=== PATIENT | female | born 1995 | race Caucasian/White ===

== ENCOUNTER 2016-11-23 03:15 | Emergency (ER) | payer OTHER ==
[~2016-11-23] VITALS: Ht 157.5 cm; Wt 53.8 kg
[2016-11-23 03:18] VITALS: TEMP 36.6; Ht 157.5 cm; Wt 53.8 kg
[2016-11-23] MEDS ORDERED: DiphenhydrAMINE HCL 50 MG/ML VIAL IV STA (03:31)
[2016-11-23] MEDS ORDERED: METOCLOPRAMIDE HCL INJ 5 MG/ML 2 ML VIAL IV STA (03:31)
[2016-11-23] MEDS ORDERED: AMPH20CA3 PO (03:32)
[2016-11-23] MEDS ORDERED: BCPILLS PO (03:33)
[2016-11-23] MEDS ORDERED: DEXAMETHASONE SOD INJ 10 MG/ML VIAL IV ONE (03:45)
[2016-11-23 04:11] LABS: MEAN CELL VOLUME 86.4 fL (80-100); MEAN CORPUSCULAR HEMOGLOBIN 29.4 pg (25-34); PLATELET COUNT 235 K/uL (130-400); RED BLOOD COUNT 4.86 M/uL (4.2-5.4); WHITE BLOOD COUNT 4.62 K/uL (4.8-10.8)
[2016-11-23 04:15] LABS: CREATININE 0.82 mg/dl (0.60-1.20); POTASSIUM 3.9 mmol/L (3.5-5.1); PREG INTERNAL NEGATIVE QC NEG CLEAR BACKGROUND; PREG INTERNAL POSITIVE QC POS CONTROL LINE
[2016-11-23 04:22] LABS: BASO % 1.7 %; BASO ABS # 0.08 K/uL (0-0.2); COMPLETE YES; EOS % 1.5 %; LYMPH % 64.1 %; LYMPH ABS # 2.96 K/uL (1.2-3.4); NEUT % 19.7 %
[2016-11-23 05:05] LABS: HEMATOCRIT 38.5 % (37-47); MEAN CELL VOLUME 87.1 fL (80-100); MEAN CORPUSCULAR HEMOGLOBIN 28.1 pg (25-34); MEAN CORPUSCULAR HGB CONC 32.2 g/dl (32-36); MEAN PLATELET VOLUME 10.1 fL (7.4-10.4); PLATELET COUNT 222 K/uL (130-400); RED BLOOD COUNT 4.42 M/uL (4.2-5.4)
[2016-11-23 05:34] LABS: BASO % 1.4 %; BASO ABS # 0.06 K/uL (0-0.2); COMPLETE YES; EOS % 2.1 %; IG% 0.2 %; LYMPH % 57.7 %; LYMPH ABS # 2.48 K/uL (1.2-3.4); MONO % 12.3 %; NEUT % 26.3 %
[2016-11-23 05:52] VITALS: BP 114/69; PULSE 72; O2SAT 97
--- NOTE | 2016-11-23 06:02 | EMERGENCY ROOM VISIT NOTE ---
History First contact with patient: 03:23 Chief Complaint: HEADACHE Stated Complaint: UNCOMFORTABLE HEADACHE, TOOTHACHE History of Present Illness The patient is a 21 year old female who presents to the Emergency Room with complaints of left sided facial pain that radiates up to her temporal region for the past day described as throbbing, ranging in severity 8 out of 10. Nothing makes it better or worse. Patient tried some nasal congestion. Patient tried Motrin and Afrin with minimal improvement of symptoms. Patient is unsure the symptoms are coming from her teeth. She is a known cavity in the right side. Nothing on the left. Patient denies eye pain, fevers, neck stiffness, sore throat, chest pain, dyspnea, cough. She is tolerate by mouth fluids and food. Review of Systems See HPI for pertinent positives & negatives. A total of 10 systems reviewed and were otherwise negative. Past Medical/Surgical History Asthma Social History Smoking Status: Never Smoker Smokeless Tobacco Use: No Drug Use: none Occupation Status: [employer] student Current/Historical Medications Scheduled Amphetamine-Dextroamphetamine 20MG (Adderall Xr 20MG), 20 MG PO DAILY Control Pills ( Control Pills), 1 TAB PO DAILY Physical Exam Vital Signs Date Time Temp Pulse Resp B/P (MAP) Pulse Ox O2 Delivery O2 Flow Rate FiO2 11/23/16 05:52 72 20 114/69 97 Room Air 11/23/16 04:26 66 20 126/85 98 Room Air 11/23/16 03:18 36.6 84 18 133/94 99 Room Air Physical Exam VITALS: Vitals are noted on the nurse's note and reviewed by myself. Vital signs stable. GENERAL: Pleasant female, in no acute distress, nondiaphoretic, well-developed well-nourished. SKIN: The skin was without rashes, erythema, edema, or bruising. There is no tenting of the skin. Capillary reflex less than 2 seconds. HEAD: Normocephalic atraumatic. EARS: External auditory canals clear, tympanic membranes pearly alvarado without erythema or effusion bilaterally. EYES: Pupils equal round and reactive to light and accommodation. Conjunctivae without injection, sclerae without icterus. Extraocular movements intact. NOSE: Patent, turbinates without inflammation or discharge. Left maxillary sinus tenderness. MOUTH: Mucous membranes moist. Pharynx without erythema or exudate. Uvula midline. Airway patent. Tongue does not deviate. NECK: Supple without nuchal rigidity. No lymphadenopathy. No thyromegaly. Cervical spine is nontender. No JVD. No meningeal signs HEART: Regular rate and rhythm without murmurs gallops or rubs. LUNGS: Clear to auscultation bilaterally without wheezes, rales or rhonchi. No dullness to percussion. No retractions or accessory muscle use. ABDOMEN: Positive bowel sounds x 4. Normal tympanic percussion. Soft, nontender, without masses or organomegaly. Dowling sign negative. No guarding or rebound tenderness. MUSCULOSKELETAL: No muscle atrophy, erythema, or edema noted. NEURO: Patient was alert and oriented to person place and time. Normal sensation to light and sharp touch. No focal neurological deficits. Medical Decision & Procedures Laboratory Results 11/23/16 04:55 Red Blood Count 4.42, Mean Corpuscular Volume 87.1, Mean Corpuscular Hemoglobin 28.1, Mean Corpuscular Hemoglobin Concent 32.2, Mean Platelet Volume 10.1, Neutrophils (%) (Auto) 26.3, Lymphocytes (%) (Auto) 57.7, Monocytes (%) (Auto) 12.3, Eosinophils (%) (Auto) 2.1, Basophils (%) (Auto) 1.4, Neutrophils # (Auto ) 1.13, Lymphocytes # (Auto) 2.48, Monocytes # (Auto) 0.53, Eosinophils # (Auto ) 0.09, Basophils # (Auto) 0.06 11/23/16 03:44 Test 11/23/16 03:44 11/23/16 04:55 Anion Gap 4.0 mmol/L (3-11) Est Creatinine Clear Calc Drug Dose 85.9 ml/min Estimated GFR () 118.6 Estimated GFR (Non- 102.3 BUN/Creatinine Ratio 7.0 (10-20) Calcium Level 9.0 mg/dl (8.5-10.1) Human Chorionic Gonadotropin, Qual NEG (NEG) White Blood Count 4.30 K/uL (4.8-10.8) Red Blood Count 4.42 M/uL (4.2-5.4) Hemoglobin 12.4 g/dL (12.0-16.0) Hematocrit 38.5 % (37-47) Mean Corpuscular Volume 87.1 fL (80-100) Mean Corpuscular Hemoglobin 28.1 pg (25-34) Mean Corpuscular Hemoglobin Concent 32.2 g/dl (32-36) Platelet Count 222 K/uL (130-400) Mean Platelet Volume 10.1 fL (7.4-10.4) Neutrophils (%) (Auto) 26.3 % Lymphocytes (%) (Auto) 57.7 % Monocytes (%) (Auto) 12.3 % Eosinophils (%) (Auto) 2.1 % Basophils (%) (Auto) 1.4 % Neutrophils # (Auto) 1.13 K/uL (1.4-6.5) Lymphocytes # (Auto) 2.48 K/uL (1.2-3.4) Monocytes # (Auto) 0.53 K/uL (0.11-0.59) Eosinophils # (Auto) 0.09 K/uL (0-0.5) Basophils # (Auto) 0.06 K/uL (0-0.2) RDW Standard Deviation 42.4 fL (36.4-46.3) RDW Coefficient of Variation 13.1 % (11.5-14.5) Immature Granulocyte % (Auto) 0.2 % Immature Granulocyte # (Auto) 0.01 K/uL (0.00-0.02) Medications Administered Medications (Trade) Dose Ordered Sig/David Route Start Time Stop Time Status Last Admin Dose Admin Dexamethasone Sodium Phosphate (Decadron Inj) 10 mg NOW ONCE IV 11/23/16 03:45 11/23/16 03:46 DC 11/23/16 03:47 10 MG Diphenhydramine HCl (Benadryl Inj) 12.5 mg NOW STAT IV 11/23/16 03:31 11/23/16 03:33 DC 11/23/16 03:46 12.5 MG Metoclopramide HCl (Reglan Inj) 5 mg NOW STAT IV 11/23/16 03:31 11/23/16 03:33 DC 11/23/16 03:46 5 MG ED Course Prior records/ancillary studies reviewed. Additional history obtained from friend Triage Nursing notes reviewed. The patient's history was concerning for left-sided facial pain with headache. Differential diagnosis: Etiologies such as dental infection, tic douloureux, migraine headache, meningitis, sinusitis, CO exposure, ICH, SAH, infection, tumor, headache, sinus thrombosis, arterial dissection, as well as others were entertained. Physical examination findings: As above. Non-focal. ER treatment provided: Decadron, Benadryl, Reglan On reassessment the patient felt better. Diagnostics interpreted by me: The labs revealed no worrisome leukocytosis or electrolyte abnormality. Negative hCG Low neutrophil count. Patient states she had a normal CBC this past year. Imaging studies: Head and facial CT negative for fracture, bleed or sinusitis or dental infection per radiology This appears to be consistent with headache and facial pain. Patient was neurovascularly and neurologically intact. She is well-appearing. She is tolerating fluids. No signs of meningitis. No signs of airway compromise. She was advised take medications as directed and to follow-up family care in a few days for further workup on her CBC or here in the ER sooner for headache, fevers, neck stiffness, worsening signs or symptoms or as needed. By the evaluation outlined above emergent etiologies such as meningitis, sinusitis, CO exposure, ICH, SAH, infection, temporal arteritis, tumor, sinus thrombosis, arterial dissection, as well as others were deemed relatively unlikely. The pt informed about the findings as listed above. All questions were answered and pleased with the treatment. Return instructions were outlined and the patient was discharged in stable condition. Referral: The patient was referred back to their primary care physician for follow-up in 2 to 3 days for a recheck of the current condition. Case reviewed with my attending. Medical Decision As above Medication Reconcilliation Current Medication List: was personally reviewed by me Blood Pressure Screening Patient's blood pressure: Normal blood pressure Impression Primary Impression: Headache Additional Impression: Left facial pain Departure Information Dispostion Home / Self-Care Condition GOOD Referrals [facility] (PCP) Patient Instructions My [facility] Additional Instructions DO NOT drive, drink alcohol, operate machinery, or perform dangerous activities today. You were given medications in the ER that can affect your ability to safely function or operate a vehicle. Your CBC neutrophil count was slightly low today. Repeat this with health services this week. Rest today in a quiet, peaceful, dark environment and get a full 8-10 hrs of sleep tonight. Avoid loud noises, smoke/smoking, alcohol, bright lights, stress, or physical exertion today to minimize the chance the headache may return. Continue current medications. Ibuprofen(Motrin, Advil) may be used for fever or pain. Use 600mg every six hours as needed. Take with food. Avoid using more than 2400mg in a 24 hour period. Do not use 2400mg per day for more than three consecutive days without physician direction. Prolonged inappropriate use can lead to stomach upset or ulcers. (AND/OR) Acetaminophen(Tylenol) may be used for fever or pain. Use 1000mg every six hours as needed. Avoid using more than 3000mg in a 24 hour period. Return to the ER for passing out, worsening headache, vision problems, neck stiffness/pain, fevers, vomiting, worsening of your condition, or as needed. Follow up with your primary physician and/or a neurologist in 2-3 days for a recheck of your current condition. Problem Qualifiers Primary Impression: Headache Headache type: unspecified Headache chronicity pattern: acute headache Intractability: not intractable Qualified Codes: R51 - Headache
--- NOTE | 2016-11-23 08:17 | DIAGNOSTIC IMAGING REPORT ---
CT OF THE HEAD WITHOUT CONTRAST CLINICAL HISTORY: Left facial sinus/dental/head pain. COMPARISON STUDY: No previous studies for comparison. CT DOSE: 820.88 mGy.cm TECHNIQUE: Helical axial images of the head were obtained without IV contrast. Automated exposure control was utilized for the study. A dose lowering technique was utilized adhering to the principles of ALARA. FINDINGS: No acute intracranial hemorrhage, midline shift or mass effect is present. Ventricular system is normal. Basilar cisterns are patent. There are no extra-axial collections. Montes-white differentiation is maintained. There is no calvarial fracture. IMPRESSION: No acute intracranial findings. Electronically signed by: Tj Paz M.D. 11/23/2016 8:15 AM Dictated Date/Time: 11/23/2016 8:14 AM
--- NOTE | 2016-11-23 08:20 | DIAGNOSTIC IMAGING REPORT ---
MAXILLOFACIAL CT WITHOUT CONTRAST CLINICAL HISTORY: Left facial sinus/dental/head pain. COMPARISON STUDY: None. TECHNIQUE: A maxillofacial CT was performed without IV contrast. Coronal and sagittal reformats were viewed. A dose lowering technique was utilized adhering to the principles of ALARA. FINDINGS: There is minimal mucosal thickening of the sinuses. There is no evidence of acute sinusitis by CT. Mastoid air cells are clear. No acute facial fracture is identified. Orbits are unremarkable. No abscess is identified by CT on this unenhanced examination. Parotid and submandibular glands are unremarkable. Epiglottis is normal. No periapical abscesses are identified. IMPRESSION: No acute facial abnormality. Electronically signed by: Tj Paz M.D. 11/23/2016 8:18 AM Dictated Date/Time: 11/23/2016 8:15 AM
== END 2016-11-23 06:17 | disposition home or self-care (01) ==
LOC: C.EDB 03:16 → C.EDA 06:17
DX: R51 Headache (principal); J45.909 Unspecified asthma, uncomplicated; Z79.3 Long term (current) use of hormonal contraceptives; Z79.899 Other long term (current) drug therapy